=== PATIENT | male | born 1980 | race Caucasian/White ===

== ENCOUNTER 2022-10-31 07:05 | Emergency (ER) | payer BC, SELFPAY ==
--- NOTE | 2022-10-31 06:56 | ECG_ITS ---
APPROVED REPORT Exam: Resting ECG HR:98 bpm ECG Measurements Heart Rate 98 AXES GA 188 P 66 QRSd 92 QRS 62 QT 339 T 72 QTc 394 Conclusion SINUS RHYTHM NONSPECIFIC ST & T-WAVE ABNORMALITY BORDERLINE ECG UNCONFIRMED REPORT Electronically signed by : Malcolm Palacios MD 11/02/2022 19:58:22
[2022-10-31 07:06] VITALS: BP 172/108; PULSE 98; RESP 24; TEMP 36.6; O2SAT 100; BMI 32.1
[2022-10-31 07:09] VITALS: PULSE 98
--- NOTE | 2022-10-31 07:16 | XR_ITS ---
PROCEDURE INFORMATION: Exam: XR Chest Exam date and time: 10/31/2022 7:40 AM Age: 42 years old Clinical indication: Pain; Chest pressure; Additional info: Chest pain TECHNIQUE: Imaging protocol: Radiologic exam of the chest. Views: 1 view. COMPARISON: No relevant prior studies available. FINDINGS: Lungs: Unremarkable. No consolidation. Pleural spaces: Unremarkable. No pleural effusion. No pneumothorax. Heart/Mediastinum: Unremarkable. No cardiomegaly. Bones/joints: Unremarkable. IMPRESSION: No acute findings.
--- NOTE | 2022-10-31 07:19 | HMH.EDGENADL ---
Discharge Plan Disposition Patient Disposition: Home, Self-Care Condition: Good Referrals Follow up/Referrals: Provider,Referral, [Primary Care Provider] - See instructions Activity Restrictions/Add. Instructions Additional Instructions/Restrictions: As discussed, it appears that your chest pain is unlikely due to a heart issue or pneumonia, you may have a viral pharyngitis that is causing significant sore throat, your potassium was also slightly low, I recommend you follow-up with your primary care doctor for the symptoms. It is also not uncommon to have similar symptoms due to anxiety, I would recommend monitoring any potential stressors or anxiety level as well. Please return with any new or worsening symptoms. Clinical Impressions Clinical Impression: Atypical chest pain Instructions Patient Instructions: DI for Anxiety -- Adult Discharge ED Provider: Ricki Bass Adult HPI General Chief complaint: Chest Pain Stated complaint: Chest Pain Time Seen by Provider: 10/31/22 07:10 Mode of Arrival: Ambulatory Source of Information: Patient Limitations: No Limitations Description of Symptoms (Recalled from ER Triage Doc. by RN): Pt reports was laying in bed after work and started having palpitations and SOA after getting home from about 1hr ago History of Present Illness HPI narrative: Patient presents for evaluation of substernal dull chest pain that radiates to his neck with associated shortness of breath, tremulousness, symptoms are acute in onset starting approximately 1 hour prior to arrival. No previous therapies. Has not had similar symptoms before. Denies any recreational drug use, pleuritic pain, positional component, or reproducibility of pain. Is able to tolerate liquids and solids. No sick contacts fevers or chills or recent travel. No hemoptysis. No unilateral leg pain or leg swelling. Related Data Allergies Allergy/AdvReac Type Severity Reaction Status Date / Time erythromycin base Allergy Verified 10/31/22 07:13 meperidine [From Demerol] Allergy Verified 10/31/22 07:13 morphine Allergy Verified 10/31/22 07:13 Penicillins Allergy Verified 10/31/22 07:13 [facility] Disclaimer: The information contained in this section may have been updated after the patient was seen, as this information can be updated by other users. Social History Smoking Status: Current every day smoker alcohol intake: current current occupational status: employed Travel in the last 8 weeks: None ROS Obtained: Yes Systems reviewed as appropriate & no additional complaints except as documented Physical Exam General General appearance: alert and anxious Head Head exam: atraumatic and normocephalic Eye Eye exam: Present normal appearance Neck Neck exam: Present normal inspection Chest Chest inspection: Present normal inspection and symmetric chest wall rise Respiratory Respiratory exam: Present normal lung sounds bilaterally; Absent respiratory distress Cardiovascular Cardiovascular exam: Present regular rate and normal rhythm Abdominal Exam Abdominal exam: Present soft Neurological Exam Neurological exam: Present alert and oriented X3 Psychiatric Psychiatric exam: Present normal affect and normal mood Skin Skin exam: Present warm and dry Medical Decision Making Medical Records Medical records reviewed: Yes I reviewed the patient's medical records. Jayesh Inquiry Pt receiving controlled substance: No Vital Signs: 10/31/22 07:06 10/31/22 07:09 10/31/22 08:00 Temperature 97.9 F Temperature Source Oral Pulse Rate 98 H 90 Pulse Rate [Right] 98 H Respiratory Rate 24 14 Blood Pressure 131/87 Blood Pressure [Right Arm] 172/108 H Blood Pressure Mean 100 Blood Pressure Mean [Right Arm] 129 Blood Pressure Source [Right Arm] Automatic Cuff Blood Pressure Position [Right Arm] Supine 02 Sat by Pulse Oximetry 100 98 Oxygen Delivery Method Room Air 10/31/22 0
[2022-10-31 07:45] LABS: Coronavirus 19, PCR Not Detected (NotDetected); Influenza A, PCR Not Detected (NotDetected); Influenza B, PCR Not Detected (NotDetected)
[2022-10-31 07:52] LABS: Alanine Aminotransferase 48 U/L (12-78); Albumin/Globulin Ratio 1.5 (1.1-1.8); Alkaline Phosphatase 87 U/L (38-126); Anion Gap 17.9 mEq/L (5-15); Aspartate Amino Transferase 50 U/L (17-59); Bilirubin,Total 0.5 mg/dl (0.2-1.3); Blood Urea Nitrogen 12 mg/dl (9-20); Carbon Dioxide 23 mmol/L (22.0-30.0); Chloride 102 mmol/L (98-107); Creatinine Clearance Estimated 140 mL/min (50-200); Estimated Glomerular Filt Rate 73 ml/min (>60); GFR (African American) 89 ML/MIN (>60); Globulin 3.4 g/dL (1.3-3.2); Glucose 160 mg/dl (74-100); Sodium 140 mmol/L (136-145); Total Protein,Serum 8.4 g/dl (6.3-8.2)
[2022-10-31 07:56] LABS: Basophils # 0.2 K/mm3 (0-0.2); Basophils % 1.1 % (0.1-2.0); Eosinophils # 0.4 K/mm3 (0.0-0.4); Eosinophils % 2.6 % (0.1-12.0); Hematocrit 51.8 % (42.0-52.0); Hemoglobin 17.2 g/dL (14.1-18.0); Lymphocytes # 6.4 K/mm3 (0.7-4.5); Lymphocytes % 42.6 % (10-50); Mean Corpuscular HGB Conc 33.2 g/dL (31.8-35.4); Mean Corpuscular Hemoglobin 28.1 pg (27.0-31.2); Mean Corpuscular Volume 84.6 fl (80-94); Mean Platelet Volume 9.3 fl (7.4-10.4); Monocytes # 1.1 K/mm3 (0.1-1.0); Monocytes % 7.4 % (1.7-9.3); Neutrophils % 46.4 % (37.0-80.0); Platelet Count 187 K/mm3 (142-424); Red Blood Count 6.12 M/mm3 (4.60-6.20); Red Cell Distribution Width 13.5 % (11.5-17.5)
[2022-10-31 08:00] VITALS: BP 131/87; PULSE 90; RESP 14; O2SAT 98
[2022-10-31 08:01] LABS: MANUAL DIFFERENTIAL MANUAL DIFFERENTIAL (MANUAL DIFF)
[2022-10-31 08:02] LABS: Potassium 2.9 mmoL/L (3.5-5.1)
--- NOTE | 2022-10-31 08:03 | PC.NURSE ---
notified of potassium of 2.9.
[2022-10-31 08:08] LABS: Free T4 (Free Thyroxine) 1.52 ng/dl (0.78-2.19)
[2022-10-31 08:19] LABS: Troponin I < 0.01 ng/ml (0.00-0.034)
[2022-10-31 08:30] VITALS: BP 126/78; PULSE 84; RESP 17; O2SAT 98
[2022-10-31 08:57] LABS: Thyroid Stimulating Hormone 5.24 uIU/mL (0.465-4.68)
[2022-10-31 09:01] LABS: Strep Scrn Group A (Rapid) Negative (Negative)
--- NOTE | 2022-10-31 09:26 | PC.NURSE ---
spoke with lab to notify sending second troponin
[2022-10-31 09:28] LABS: Eosinophils % 1 % (0-3); Lymphocytes % 46 % (10-50); Monocytes % 5 % (2-9); Neutrophils % 48 % (42-76); Platelet Estimate Normal; RBC Morphology Normal; Total Cells Counted 100
[2022-10-31 10:11] LABS: Troponin I < 0.01 ng/ml (0.00-0.034)
[2022-10-31 10:24] VITALS: BP 121/77; PULSE 81; RESP 20; TEMP 36.6; O2SAT 97
== END 2022-10-31 10:24 | disposition home or self-care (01) ==
PROVIDERS: Emergency Provider Emergency Medicine
DX: R07.89 Other chest pain (principal); M54.2 Cervicalgia; R06.02 Shortness of breath; F17.200 Nicotine dependence, unspecified, uncomplicated
CPT/HCPCS: 71045; 80053; 84439; 84443; 84484; 85007; 85025; 87430; 87636; 93005; 99285

== ENCOUNTER → 2022-11-29 15:22 | Outpatient (CLI) | payer BC, SELFPAY | LOC: RT 15:23 | PROVIDERS: PCP Family Medicine; Visit Provider Physician Assistant | DX: R00.2 Palpitations (principal) | CPT/HCPCS: 93270 ==

== ENCOUNTER → 2023-01-17 06:29 | Outpatient (CLI) | payer BC, SELFPAY ==
--- NOTE | 2023-01-17 06:30 | CA_ITS ---
APPROVED REPORT EXAM: Comprehensive 2D, Doppler, and color-flow Echocardiogram Homebound Teacher: Yadira Alanis RDCS Ht: 6 ft 2 in Wt: 272lbs BSA: 2.48 BP: 136/91 mmHg Indications: PALPS,CP M-Mode Dimensions RVDd 1.82 cm (0.9-2.6) LA Diam 3.43 cm (1.9-4.0) LVDd 5.08 cm (3.5-5.7) LVDs 3.64 cm (3.5-5.7) IVSd 0.72 cm (0.6-1.1) PWd 0.83 cm (0.6-1.1) EF (Teich) 54.40% FS 28.30% EDV (Teich) 122.70 mL TAPSE 1.60 (<1.7) ESV (Teich) 55.90 mL LV Diastology E Decel Time 150 (160-240 msec) E/A Ratio 1.4 Mitral Valve MV E Max Derrick. 65.0 (40-130 cm/s) MV A Velocity 45.0 (40-130 cm/s) E/A Ratio 1.44 MV PHT 44.0 ms Left Ventricle The left ventricle is normal size. The left ventricular systolic function is low normal There is normal left ventricular wall thickness. There is moderate hypokinesis of the inferior and inferolateral LV huertas. The left ventricular diastolic function is normal. LVEF is 50%. Right Ventricle The right ventricle is normal size. Atria The left atrium size is normal. The right atrium size is normal. There is no Doppler evidence of interatrial shunt. Aortic Valve The aortic valve is normal in structure. There is no aortic valvular stenosis. No aortic regurgitation is present. Mitral Valve The mitral valve is normal in structure. No evidence of mitral valve stenosis. Trace mitral regurgitation. Tricuspid Valve The tricuspid valve leaflets are thin and pliable. Trace tricuspid regurgitation. There is insufficient TR jet to estimate RVSP. Pulmonic Valve The pulmonary valve is normal in structure. Trace pulmonic regurgitation. Great Vessels The aortic root is normal in size. The ascending aorta is not well-visualized. IVC is normal in size and collapses >50% with inspiration. Pericardium There is no pericardial effusion. Other Information Study Quality: Adequate Conclusion No normal LV systolic function (LVEF 50%). Moderate hypokinesis of the inferior and inferolateral LV huertas. No significant valvular stenosis or regurgitation. Electronically signed by : Mahnaz Boyle MD 01/21/2023 21:50:43
--- NOTE | 2023-01-17 06:35 | NM_ITS ---
APPROVED REPORT Exam: Nuclear Stress Test Indication: HTN, HYPERLIPIDEMIA, FORMER TOB USE, ANGINA, SOB, PALPITATIONS Patient Location: Outpatient Stress Tech: Jael Edouard [place] Tech:SENTHIL Thakur RT (R)(N)(M) Ht: 6 ft 2 in Wt: 260 lbs HR: 74 bpm BP: 153/98 mmHg BSA: 2.43 m2 Rhythm: NSR TID: 1.18 BMI: 33.3 History: HTN, HYPERLIPIDEMIA, FORMER TOB USE, ANGINA, SOB, PALPITATIONS Procedure: Patient exercised on Arnie protocol 9:32 minutes and sec, resting heart rate 74 bpm, resting blood pressure 153/98 mmHg, with exercise maximum heart rate achived was 138 bpm which is 78 % of the maximum predicted heart rate and blood pressure was 168/88 mmHg. Test was stopped due to FAITIGUE. Patient denied any complaint of chest pain. Patient has Average exercise capacity, achieved 10.1 METs of workload on treadmill, the blood pressure response to exercise was Blunted. Cardiac Stress and Resting SPECT Images: Cardiac Stress and Resting SPECT images were obtained using technetium 99m Myoview 29.4 mCi stress and 10.56 mCi at rest. This is a suboptimal stress test as the patient was unable to achieve target HR. Resting and stress imaging in supine and prone positions demonstrate a medium sized, moderate, reversible perfusion defect in the inferior LV wall. Gated imaging demonstrates low normal LV systolic function. There is mild hypokinesis of the basal inferior LV wall. LVEF is calculated at 52%. Conclusion: This is a suboptimal stress test as the patient was unable to achieve target HR. Medium sized, moderate, reversible perfusion defect in the inferior LV wall is present at the level of HR achieved. Gated imaging demonstrates low normal LV systolic function. There is mild hypokinesis of the basal inferior LV wall. LVEF is calculated at 52%. As this was a suboptimal stress test. Further evaluation to evaluate for ischemia is recommended. Electronically signed by : Mahnaz Boyle MD 01/20/2023 14:18:09
--- NOTE | 2023-01-17 10:21 | CA_ITS ---
APPROVED REPORT Exam: Exercise Treadmill Technologist: Jael Vivar, Ht: 6 ft 2 in Wt: 272 lbs BSA: 2.48 m2 HR: 65 bpm BP: 144/88 mmHg Rhythm: NSR Medical History Medications: Amlodipine,,,,, Omeprazole,,,,, Levothyroxine,,,,, Atorvastatin,,,,, HCTZ,,,,, LoraTADINE,,,,, MonteKULAST,,,,, Metoprolol Succinate ER,,,,, Stress Test Details Test: Arnie HR Resting HR: 74 bpm Max Heart Rate (APMHR): 178 bpm Max HR Achieved: 138 bpm Target HR (85% APMHR): 151 bpm % of APMHR: 78 Recovery HR: 80 bpm HR response to stress: Blunted HR response to stress BP Resting BP: 153.0/98 mmHg Max BP: 168/88 mmHg Recovery BP: 155.0/96.0 mmHg BP response to stress: Blunted blood pressure response to stress. ECG Resting ECG: Normal sinus rhythm Stress ECG: No significant ST changes Arrhythmia: None Recovery ECG: No significant ST changes Recovery Arrhythmia: None Clinical Exercise duration: 09:32 min Highest Stage Achieved: III Exercise capacity: 10.1 METs Overall Exercise Capacity for Age: Average Stress ECG Conclusion This is a suboptimal stress test as the patient was unable to achieve target HR. The patient was able to exercise for a total of 9 minutes, 42 seconds. He has average exercise capacity compared to age and sex matched peers. He has blunted HR and BP response to exercise. Max HR: 138 Max BP: 168/88 METs: 10.1 Symptoms: SOA, No chest pain, Dizziness. Arrhythmias/Ectopy: None ST-T Changes: No significant ST changes Conclusion: Suboptimal stress test as the patient was unable to achieve target HR. Blunted HR and BP response to exercise. Average exercise capacity. No ECG changes suggestive of ischemia at the level of HR achieved. Test Summary REST . . . . . . . Sitting REST . . . . . . . Standing REST . . . . . . . Standing REST 13:45 0.0 0.0 74 . 153/ 98 . . Stage 1 01:00 10.0 1.7 91 . . . . Stage 1 02:00 10.0 1.7 95 . 160/ 82 . . Stage 1 03:00 10.0 1.7 93 . 160/ 82 . . Stage 2 01:00 12.0 2.5 106 . . . . Stage 2 02:00 12.0 2.5 112 . . . . Stage 2 03:00 12.0 2.5 112 . 168/ 88 . . Stage 3 01:00 14.0 3.4 120 . . . . Stage 3 02:00 14.0 3.4 129 . . . . Stage 3 . . . . . . . Stage held Stage 3 03:00 14.0 3.4 136 . . . . Stage 3 . . . . . . . Stage resumed Stage 3 03:32 14.0 3.4 136 . . . Stop exercise at 09:32 RECOVERY 01:00 0.0 0.0 113 . . . . RECOVERY 02:00 0.0 0.0 73 . . . . RECOVERY 03:00 0.0 0.0 85 . 158/ 95 . . RECOVERY 04:00 0.0 0.0 82 . 155/ 96 . . RECOVERY 04:04 0.0 0.0 82 . 155/ 96 . . Electronically signed by : Mahnaz Boyle MD 01/20/2023 14:16:02
== END ==
LOC: RAD 06:30
PROVIDERS: PCP Internal Medicine; Visit Provider Internal Medicine
DX: R07.89 Other chest pain (principal); R00.2 Palpitations
CPT/HCPCS: 78452; 93017; 93018; 93306; A9502

== ENCOUNTER 2023-05-27 10:32 | Emergency (ER) | payer BC, SELFPAY ==
[2023-05-27 10:40] VITALS: BP 128/88; PULSE 87; RESP 19; TEMP 36.8; O2SAT 97; BMI 35.1
--- NOTE | 2023-05-27 11:01 | EXP.UTC ---
Discharge Plan Disposition Patient Disposition: Home, Self-Care Condition: Good Prescriptions Prescriptions: New benzonatate 100 mg capsule 100 mg PO TID PRN (Reason: cough) Qty: 30 0RF methylprednisolone [Medrol (Juni)] 4 mg tablets,dose pack See Rx Instructions .Route .COMPLEX 6 Days Qty: 21 0RF Rx Instructions: taper pack; doxycycline hyclate 100 mg capsule 100 mg PO BID 7 Days Qty: 14 0RF No Action atorvastatin 10 mg tablet 10 mg PO DAILY Patient Comments: TAKE 1 TABLET BY MOUTH ONCE DAILY metoprolol succinate 50 mg tablet extended release 24 hr 50 mg PO DAILY Patient Comments: TAKE 1 TABLET BY MOUTH ONCE DAILY FOR 90 DAYS . APPOINTMENT REQUIRED FOR FUTURE REFILLS amlodipine 5 mg tablet 5 mg PO DAILY Patient Comments: TAKE 1 TABLET BY MOUTH ONCE DAILY levothyroxine 150 mcg tablet 150 mcg PO DAILY Patient Comments: TAKE 1 TABLET BY MOUTH ONCE DAILY omeprazole 20 mg capsule,delayed release(DR/EC) 20 mg PO DAILY Patient Comments: TAKE 1 CAPSULE BY MOUTH ONCE DAILY montelukast 10 mg tablet 10 mg PO DAILY Patient Comments: TAKE 1 TABLET BY MOUTH ONCE DAILY. TAKE 12 HOURS AFTER LORATADINE hydrochlorothiazide 25 mg tablet 25 mg PO DAILY Patient Comments: TAKE 1 TABLET BY MOUTH ONCE DAILY IN THE MORNING Referrals Follow up/Referrals: Provider,Referral, MD [Primary Care Provider] - See instructions Activity Restrictions/Add. Instructions Additional Instructions/Restrictions: Monitor Temp, Over the counter Motrin or Tylenol as directed/as needed Tylenol every 4 hours and Motrin every 6 hours (as long as your family doctor has told you that you can take it) for fever or pain. and straight to ER if unable to lower temp less than 101.0 after medication given *Warm salt water gargles may help to soothe the throat *Throat Lozenges? *Warm fluids like tea with honey may help to soothe the throat? *Sleep elevated *Humidifier/Vaporizer Take medication as prescribed Seperate dose of Doxy from Omeprazole by at least 1-2 hours Follow up IMMEDIATELY for new or worsening symptoms or no Noticeable improvement over the next 48-72 hours. 911 for difficulty breathing or swallowing Clinical Impressions Clinical Impression: Sinusitis Instructions Patient Instructions: DI for Sinusitis, Sinusitis Discharge ED Provider: Clair Cotton [facility] [place] General Stated complaint: sinus drainage, soa, congestion, cough Mode of Arrival: Ambulatory Source of Information: Patient Limitations: No Limitations Time Seen by Provider: 05/27/23 11:01 Description of Symptoms (Recalled from Triage Doc. by RN): PATIENT C/O COUGH AND SINUS PAIN/PRESSURE X 4 DAYS HEENT Symptoms (Recalled from RN notes): Yes Resp Symptoms (Recalled from RN notes): Yes Skin Symptoms (Recalled from RN notes): No MS Symptoms (Recalled from RN notes): No Functional Status (Recalled from RN notes): WNL History of Present Illness Provider Complaint: Patient states that he has been having cough that is worse after he lays down and sinus pain and pressure that has got worse over the last 3-4 days States this morning he was feeling worse so he came in to get checked Related Data Home Medications Medication Instructions Recorded Confirmed amlodipine 5 mg tablet 5 mg PO DAILY 05/27/23 05/27/23 atorvastatin 10 mg tablet 10 mg PO DAILY 05/27/23 05/27/23 hydrochlorothiazide 25 mg tablet 25 mg PO DAILY 05/27/23 05/27/23 levothyroxine 150 mcg tablet 150 mcg PO DAILY 05/27/23 05/27/23 metoprolol succinate 50 mg 50 mg PO DAILY 05/27/23 05/27/23 tablet,extended release 24 hr montelukast 10 mg tablet 10 mg PO DAILY 05/27/23 05/27/23 omeprazole 20 mg capsule,delayed 20 mg PO DAILY 05/27/23 05/27/23 release Previous Rx's Medication Instructions Recorded benzonatate 100 mg capsule 100 mg PO TID PRN cough #30 caps 05/27/23 doxycycline hyclate 100 mg capsule 100 mg PO BID 7 days #14 caps 05/27/23 methylprednisolone 4 mg tablets in See Rx Instructions .Route 05/27/23 a dose pack (Medrol (Juni)) .COMPLEX 6 days #21 tabs Allergies Allergy/AdvReac Type Severity Reaction Status Date / Time erythromycin base Allergy Verified 01/24/23 10:26 meperidine [From Demerol] Allergy Verified 01/24/23 10:26 morphine Allergy Verified 01/24/23 10:26 Penicillins Allergy Verified 01/24/23 10:26 Worker's Comp Is this a Worker's Comp case?: No [facility] Disclaimer: The information contained in this section may have been updated after the patient was seen, as this information can be updated by other users. Social History Smoking Status: Current every day smoker alcohol intake: current current occupational status: employed Travel in the last 8 weeks: None ROS Obtained: Yes All systems reviewed & no additional complaints except as documented and Yes Systems reviewed as appropriate & no additional complaints except as documented Constitutional Constitutional: Reports system reviewed and no additional complaints, except as documented, Reports as per HPI and Reports headache(s) ENT Ears, Nose, Mouth, and Throat: Reports system reviewed and no additional complaints, except as documented, Reports as per HPI, Reports headache(s), Reports sinus pain and Reports sinus pressure Cardiovascular Cardiovascular: Reports system reviewed and no additional complaints, except as documented and Reports as per HPI Respiratory Respiratory: Reports system reviewed and no additional complaints, except as documented, Reports as per HPI and Reports cough Gastrointestinal Gastrointestingal: Reports system reviewed and no additional complaints, except as documented and as per HPI Genitourinary Male Genitourinary: Reports system reviewed and no additional complaints, except as documented and Reports as per HPI Neurologic Neurologic: Reports headache(s) Physical Exam General General appearance: alert and in no apparent distress ENT ENT exam: Present mucous membranes moist Expanded ENT Exam Nose exam: Present sinus tenderness Throat exam: Present other (Pharyngeal erythema noted with PND) Respiratory Respiratory exam: Present normal lung sounds bilaterally; Absent respiratory distress or wheezes Cardiovascular Cardiovascular exam: Present regular rate, normal rhythm and normal heart sounds Neurological Exam Neurological exam: Present alert, oriented X3 and normal gait Medical Decision Making Jayesh Inquiry Pt receiving controlled substance: No Jayesh was queried for this patient: No Vital Signs: 05/27/23 10:40 Temperature 98.2 F Temperature Source Oral Pulse Rate [Left Brachial] 87 Respiratory Rate 19 Blood Pressure [Left Arm] 128/88 Blood Pressure Mean [Left Arm] 101 Blood Pressure Source [Left Arm] Automatic Cuff Blood Pressure Position [Left Arm] Sitting 02 Sat by Pulse Oximetry 97 Oxygen Delivery Method Room Air Medical Decision Narrative: Patient states that he has taken Medrol in the past without complications or reactions
[2023-05-27 11:18] VITALS: BP 128/88; PULSE 87; RESP 19; TEMP 36.8; O2SAT 97
== END 2023-05-27 11:20 | disposition home or self-care (01) ==
PROVIDERS: Emergency Provider Nurse Practitioner
DX: J01.90 Acute sinusitis, unspecified; R51.9 Headache, unspecified; R05.9 Cough, unspecified; R09.81 Nasal congestion; F17.210 Nicotine dependence, cigarettes, uncomplicated
CPT/HCPCS: 99204; 99212; G0463

== ENCOUNTER 2023-08-05 14:00 | Outpatient (RCR) | payer BC, SELFPAY | END 2023-08-05 15:00 | disposition home or self-care (01) | LOC: PT 14:00 | PROVIDERS: Visit Provider Orthopaedic Surgery | DX: M62.82 Rhabdomyolysis (principal) | CPT/HCPCS: 97010; 97110; 97163; 97164 ==

== ENCOUNTER 2024-03-06 09:22 | Emergency (ER) | payer BC, SELFPAY ==
[2024-03-06 09:46] VITALS: BP 144/96; PULSE 80; RESP 18; TEMP 36.8; O2SAT 98; BMI 37.0
--- NOTE | 2024-03-06 09:50 | EXP.UTC ---
Discharge Plan Disposition Patient Disposition: Home, Self-Care Condition: Good Prescriptions Prescriptions: New clindamycin HCl 300 mg capsule 300 mg PO Q8H Qty: 30 0RF chlorhexidine gluconate [Peridex] 0.12 % mouthwash 15 ml buccal BID 14 Days Qty: 473 1RF Rx Instructions: Swish and spit 15 milliliters bid for the next 14 days No Action atorvastatin 10 mg tablet 10 mg PO DAILY Patient Comments: TAKE 1 TABLET BY MOUTH ONCE DAILY metoprolol succinate 50 mg tablet extended release 24 hr 50 mg PO DAILY Patient Comments: TAKE 1 TABLET BY MOUTH ONCE DAILY FOR 90 DAYS . APPOINTMENT REQUIRED FOR FUTURE REFILLS amlodipine 5 mg tablet 5 mg PO DAILY Patient Comments: TAKE 1 TABLET BY MOUTH ONCE DAILY levothyroxine 150 mcg tablet 150 mcg PO DAILY Patient Comments: TAKE 1 TABLET BY MOUTH ONCE DAILY omeprazole 20 mg capsule,delayed release(DR/EC) 20 mg PO DAILY Patient Comments: TAKE 1 CAPSULE BY MOUTH ONCE DAILY montelukast 10 mg tablet 10 mg PO DAILY Patient Comments: TAKE 1 TABLET BY MOUTH ONCE DAILY. TAKE 12 HOURS AFTER LORATADINE hydrochlorothiazide 25 mg tablet 25 mg PO DAILY Patient Comments: TAKE 1 TABLET BY MOUTH ONCE DAILY IN THE MORNING Referrals Follow up/Referrals: Jerome Benoit MD [Primary Care Provider] - See instructions Activity Restrictions/Add. Instructions Additional Instructions/Restrictions: Follow up with your dentist as you already have scheduled. Take the antibiotics (clindamycin) as directed. Use the peridex mouth wash as directed. Follow up with your primary care physician. GO TO THE ER FOR ANY WORSENING SYMPTOMS OR CONCERNS Clinical Impressions Clinical Impression: Dental abscess Instructions Patient Instructions: Tooth Abscess, DI for Tooth Abscess, Clindamycin Print Language Print Language: Chinese Discharge ED Provider: Ghanshyam Sandoval [facility] [place] General Stated complaint: abscessed tooth, ear pain Mode of Arrival: Ambulatory Source of Information: Patient Time Seen by Provider: 03/06/24 09:50 Description of Symptoms (Recalled from Triage Doc. by RN): RIGHT EAR PAIN, BOTTOM RIGHT TOOTH HURTING HEENT Symptoms (Recalled from RN notes): Yes Resp Symptoms (Recalled from RN notes): No Skin Symptoms (Recalled from RN notes): No MS Symptoms (Recalled from RN notes): No Functional Status (Recalled from RN notes): WNL History of Present Illness Provider Complaint: He states that he has a decayed tooth that has been frequently getting infected and abscessing. He states that about 1 week ago his pain worsened and now he is having swelling and pain around the tooth. He has an appointment with his dentist on 03/12 to have it removed. Related Data Home Medications ?Medication ?Instructions ?Recorded ?Confirmed amlodipine 5 mg tablet 5 mg PO DAILY 05/27/23 03/06/24 atorvastatin 10 mg tablet 10 mg PO DAILY 05/27/23 03/06/24 hydrochlorothiazide 25 mg tablet 25 mg PO DAILY 05/27/23 03/06/24 levothyroxine 150 mcg tablet 150 mcg PO DAILY 05/27/23 03/06/24 metoprolol succinate 50 mg 50 mg PO DAILY 05/27/23 03/06/24 tablet,extended release 24 hr montelukast 10 mg tablet 10 mg PO DAILY 05/27/23 03/06/24 omeprazole 20 mg capsule,delayed 20 mg PO DAILY 05/27/23 03/06/24 release Previous Rx's ?Medication ?Instructions ?Recorded chlorhexidine gluconate 0.12 % 15 ml buccal BID 14 days #473 mL 03/06/24 mouthwash (Peridex) clindamycin HCl 300 mg capsule 300 mg PO Q8H #30 caps 03/06/24 Allergies Allergy/AdvReac Type Severity Reaction Status Date / Time erythromycin base Allergy Verified 01/24/23 10:26 meperidine (From Demerol) Allergy Verified 01/24/23 10:26 morphine Allergy Verified 01/24/23 10:26 Penicillins Allergy Verified 01/24/23 10:26 Worker's Comp Is this a Worker's Comp case?: No [facility] Disclaimer: The information contained in this section may have been updated after the patient was seen, as this information can be updated by other users. Social History Smoking Status: Current every day smoker alcohol intake: current current occupational status: employed Travel in the last 8 weeks: None Have you lived/traveled outside [place] in past 30 days?: No Contact w/someone who lives/traveled outside [place] past 30 days?: No Exposure to someone with infectious disease in past 14 days?: No Do you have a fever (greater than 100.4 F or 38 C)?: No Have you tested positive for COVID-19: No Exposed to someone with COVID-19 in past 14 days?: No Do you have a sore throat?: No Do you have a cough?: No Do you have any weakness?: No Do you have any diarrhea?: No Are you experiencing any unusual bleeding?: No Do you have any muscle aches/pain?: No Do you have any abdominal pain?: No Are you experiencing loss of taste or smell?: No ROS Obtained: Yes All systems reviewed & no additional complaints except as documented Constitutional Constitutional: Denies chills and Denies fever(s) Eyes Eyes: Denies eye discharge ENT Ears, Nose, Mouth, and Throat: Denies dizziness, Denies otalgia and Denies sore throat Cardiovascular Cardiovascular: Denies chest pain Respiratory Respiratory: Denies shortness of breath, Denies chest congestion, Denies cough, Denies stridor and Denies wheezing Gastrointestinal Gastrointestingal: Denies nausea or vomiting Musculoskeletal Musculoskeletal: Reports system reviewed and no additional complaints, except as documented and Denies arthralgias Integumentary/Breasts Skin/Breast: Denies rash Neurologic Neurologic: Denies dizziness and Denies paresthesias Allergic/Immunologic Allergic/Immunologic: Denies wheezing Physical Exam General General appearance: alert and in no apparent distress Head Head exam: atraumatic, normocephalic and normal inspection Eye Eye exam: Present normal appearance, PERRL and EOMI ENT ENT exam: Present mucous membranes moist, TM's normal bilaterally and normal external ear exam Expanded ENT Exam Nose exam: Absent sinus tenderness Nasal speculum exam: Bilateral: normal Mouth exam: Present normal external inspection; Absent drooling Teeth exam: Present dental caries, fractured tooth # and dental tenderness # Throat exam: Present normal inspection Neck Neck exam: Present normal inspection, full ROM and trachea midline; Absent meningismus or lymphadenopathy Chest Chest inspection: Present normal inspection and symmetric chest wall rise; Absent tenderness Respiratory Respiratory exam: Present normal lung sounds bilaterally; Absent respiratory distress Cardiovascular Cardiovascular exam: Present regular rate and normal rhythm; Absent JVD Abdominal Exam Abdominal exam: Present soft and normal bowel sounds; Absent distention, tenderness or guarding Extremities Exam Extremities exam: Present normal inspection, full ROM and normal capillary refill; Absent calf tenderness Back Exam Back exam: Present normal inspection; Absent tenderness Neurological Exam Neurological exam: Present alert and oriented X3 Psychiatric Psychiatric exam: Present normal affect and normal mood Skin Skin exam: Present warm, dry, intact and normal color Lymphatic Lymphatic Findings: no adenopathy Medical Decision Making Medical Records Medical records reviewed: No I reviewed the patient's medical records. Screening: Per USPSTF and CDC recommendations, given the prevalence of disease in our region, it is our hospital?s policy to screen for HIV and viral Hepatitis for all patients aged 18 and over and those with ongoing risk factors. Jayesh Inquiry Pt receiving controlled substance: No Vital Signs: 03/06/24 09:46 Temperature 98.3 F Temperature Source Oral Pulse Rate [Left Radial] 80 Respiratory Rate 18 Blood Pressure [Left Arm] 144/96 H Blood Pressure Mean [Left Arm] 112 02 Sat by Pulse Oximetry 98
[2024-03-06 10:40] VITALS: BP 144/96; PULSE 80; RESP 18; TEMP 36.8
== END 2024-03-06 10:41 | disposition home or self-care (01) ==
PROVIDERS: Emergency Provider Nurse Practitioner Family; PCP Family Medicine
DX: K04.7 Periapical abscess without sinus (principal)
CPT/HCPCS: 99212; G0381